=== PATIENT | female | born 1995 | race Caucasian/White ===

== ENCOUNTER 2017-06-22 13:23 | Emergency (ER) | payer BC ==
[2017-06-22 14:54] VITALS: BP 117/61
--- NOTE | 2017-06-22 15:01 | UC ---
Abdominal Pain Female HPI - History of Current Complaint Stated Complaint: VOMITING/DIARRHEA Time Seen by Provider: 06/22/17 14:53 Hx Obtained From: Patient Hx Last Menstrual Period: 05/11/17 ?: No Onset/Duration: Gradual Onset - 2 weeks ago LUQ abd pain, cramping pain., Worse Since - last night with nausea and vomiting. Timing: Intermittent Episodes Lasting: - 1 1/2 to 2 hours after BM with diarrhea. Severity Initially: Moderate Severity Currently: None Pain Intensity: 7 Location: Discrete At: LUQ Character: Cramping Aggravating Factor(s): Other: - bowel movements Alleviating Factor(s): Nothing Associated Signs and Symptoms: Positive: Diaphoresis, Dizzy, Nausea, Vomiting, Diarrhea. Negative: Blood in Stool, Decreased Appetite Allergies/Adverse Reactions: Allergies Allergy/AdvReac Type Severity Reaction Status Date / Time Amoxicillin Allergy Intermediate Diarrhea Verified 06/22/17 14:54 Penicillins [PCN] Allergy Intermediate Diarrhea Verified 06/22/17 14:54 Latex Allergy Mild Rash Verified 06/22/17 14:54 Home Medications: Home Medications Ibuprofen TAB* [Advil TAB*] 400 mg PO Q6H PRN 06/22/17 [History Confirmed ] PMH/Surg Hx/FS Hx/Imm Hx Previously Healthy: Yes Other History Of: Hepatitis C Negative For: HIV, Hepatitis B - Surgical History Surgical History: Yes Surgery Procedure, Year, and Place: APPY AGE 14 - Family History Known Family History: Positive: Cardiac Disease, Hypertension Negative: Diabetes, Renal Disease, Seizure Disorder - Social History Occupation: Employed Full-time Lives: With Family Alcohol Use: None Substance Use Type: None Smoking Status (MU): Never Smoked Tobacco Have You Smoked in the Last Year: No Review of Systems Constitutional: Chills, Fatigue Gastrointestinal: Abdominal Pain, Vomiting, Diarrhea Musculoskeletal: Myalgia Neurological: Headache All Other Systems Reviewed And Are Negative: Yes Physical Exam Triage Information Reviewed: Yes Appearance: Well-Appearing, No Pain Distress, Well-Nourished Vital Signs: Initial Vital Signs Temp 98.8 F 06/22/17 14:44 Pulse 76 06/22/17 14:44 Resp 18 06/22/17 14:44 BP 117/61 06/22/17 14:44 Pulse Ox 99 06/22/17 14:44 Vital Signs Reviewed: Yes Eyes: Positive: Conjunctiva Inflamed - mild bilaterally ENT: Positive: Pharynx normal - Mucus membranes moist., TMs normal Dental Exam: Normal Neck exam: Normal Respiratory Exam: Normal Cardiovascular: Positive: RRR, Murmur:Sys:Grade _?_/ - 2/6 only when lying down Abdomen Description: Negative: Nontender - Mild bilateral lower quadrant tenderness, No Organomegaly, CVA Tenderness (R), CVA Tenderness (L), Peritoneal Signs Bowel Sounds: Positive: Present Musculoskeletal Exam: Normal Neurological Exam: Normal Psychological Exam: Normal Skin Exam: Normal Abd Pain Female Course/Dx - Differential Dx/Diagnosis Differential Diagnosis: Appendicitis, Bowel Obstruction, Diverticulitis, Ectopic , Renal Colic Provider Diagnoses: Acute gastroenteritis. Abdominal pain Discharge - Discharge Plan Condition: Stable Disposition: HOME Prescriptions: Ondansetron ODT TAB* [Zofran 4 MG Odt TAB*] 4 mg PO Q6H PRN #10 tab.odt PRN Reason: Nausea/Vomiting Patient Education Materials: Gastroenteritis (ED), Ondansetron (By mouth), Abdominal Pain (ED) Forms: *Work Release Additional Instructions: Ok to use imodium/ generic loperamide if you don't have bloody diarrhea or shaking chills.
== END 2017-06-22 15:50 | disposition home or self-care (01) ==
LOC: UCCORT 13:23
DX: K52.9 Noninfective gastroenteritis and colitis, unspecified (principal); R10.12 Left upper quadrant pain; R42 Dizziness and giddiness; R61 Generalized hyperhidrosis; R51 Headache; R53.83 Other fatigue; M79.1 Myalgia; Z32.02 Encounter for pregnancy test, result negative; Z88.0 Allergy status to penicillin; Z91.040 Latex allergy status
CPT/HCPCS: 81003; 84702; 87086; 99212; G0463

== ENCOUNTER 2018-05-20 08:50 | Emergency (ER) | payer SELFPAY ==
[2018-05-20 09:06] VITALS: BP 123/92
--- NOTE | 2018-05-20 09:33 | RAD ---
HISTORY: INJURY TO RIGHT MIDDLE FINGER COMPARISONS: June 08, 2015 VIEWS: 3, Frontal, lateral, and oblique views of the third digit of the right hand FINDINGS: BONE DENSITY: Normal. BONES: There is a nondisplaced fracture of the tuft of the distal phalanx of the third digit. JOINTS: There is no arthropathy. ALIGNMENT: There is no dislocation. SOFT TISSUES: Unremarkable. OTHER FINDINGS: None. IMPRESSION: NONDISPLACED FRACTURE OF THE TUFT OF THE DISTAL PHALANX OF THE THIRD DIGIT
--- NOTE | 2018-05-20 10:16 | UC ---
Hand/Wrist HPI - HPI Summary HPI Summary: RIGHT MIDDLE FINGER PAIN X 1 DAY INJURY TO RIGHT MIDDLE FINGER ONE DAY AGO, PINCHED HER FINGER BETWEEN THE COUCH SHE WAS MOVING IT - History Of Current Complaint Chief Complaint: UCUpperExtremity Stated Complaint: RIGTH MIDDLE FINGER INJURY Time Seen by Provider: 05/20/18 09:11 Hx Obtained From: Patient Hx Last Menstrual Period: 04/20/18 ?: No Onset/Duration: Sudden Onset, Lasting Days - 1, Still Present Severity Initially: Moderate Severity Currently: Moderate Pain Intensity: 8 Pain Scale Used: 0-10 Numeric Character Of Pain: Throbbing Aggravating Factor(s): Movement, Lifting, Flexion, Extension Alleviating Factor(s): Rest, Ice Associated Signs And Symptoms: Positive: Swelling, Redness, Weakness - Allergies/Home Medications Allergies/Adverse Reactions: Allergies Allergy/AdvReac Type Severity Reaction Status Date / Time amoxicillin Allergy Diarrhea Verified 05/20/18 09:06 latex Allergy Rash Verified 05/20/18 09:06 Penicillins Allergy Diarrhea Verified 05/20/18 09:06 PMH/Surg Hx/FS Hx/Imm Hx Previously Healthy: Yes Other History Of: Hepatitis C Negative For: HIV, Hepatitis B - Surgical History Surgical History: Yes Surgery Procedure, Year, and Place: APPY AGE 14 - Family History Known Family History: Positive: Cardiac Disease, Hypertension Negative: Diabetes, Renal Disease, Seizure Disorder - Social History Alcohol Use: Occasionally Substance Use Type: None Smoking Status (MU): Never Smoked Tobacco Have You Smoked in the Last Year: No Review of Systems Constitutional: Negative Skin: Negative Eyes: Negative ENT: Negative Is Patient Immunocompromised?: No All Other Systems Reviewed And Are Negative: Yes Physical Exam Triage Information Reviewed: Yes Appearance: Well-Appearing, No Pain Distress, Well-Nourished Vital Signs: Initial Vital Signs Temp 97.6 F 05/20/18 09:02 Pulse 77 05/20/18 09:02 Resp 14 05/20/18 09:02 BP 123/92 05/20/18 09:02 Pulse Ox 100 05/20/18 09:02 Eye Exam: Normal Eyes: Positive: Conjunctiva Clear ENT Exam: Normal ENT: Positive: Normal ENT inspection, Hearing grossly normal, Pharynx normal Neck: Positive: Supple, Nontender, No Lymphadenopathy Respiratory: Positive: Chest non-tender, Lungs clear, Normal breath sounds Cardiovascular: Positive: RRR, No Murmur, Pulses Normal Musculoskeletal: Positive: Other: - RIGHT MIDDLE FINGER ; + SWELLING DISTAL PHALANGS, TENDER TO TOUCH , PAIN WITH FINGER FLEXION AND EXTENSION Diagnostics - Laboratory Diagnostic Studies Completed/Ordered: XRAY RIGHT MIDDLE FINGER : IMPRESSION: NONDISPLACED FRACTURE OF THE TUFT OF THE DISTAL PHALANX OF THE THIRD DIGIT Hand/Wrist Course/Dx - Differential Dx/Diagnosis Provider Diagnoses: TUFT FRACTUE RIGHT MIDDLE FINGER Discharge - Sign-Out/Discharge Documenting (check all that apply): Patient Departure - Discharge Plan Condition: Stable Disposition: HOME Patient Education Materials: Finger Fracture (ED) Forms: *Work Release Referrals: Nash Alonso MD [Primary Care Provider] - 7 Days - Billing Disposition and Condition Condition: STABLE Disposition: Home
== END 2018-05-20 09:47 | disposition home or self-care (01) ==
LOC: UCCORT 08:50
DX: S62.662A Nondisplaced fracture of distal phalanx of right middle finger, initial encounter for closed fracture (principal); W23.0XXA Caught, crushed, jammed, or pinched between moving objects, initial encounter; Y93.89 Activity, other specified; Y92.008 Other place in unspecified non-institutional (private) residence as the place of occurrence of the external cause; Z88.0 Allergy status to penicillin
CPT/HCPCS: 73140; 99212; G0463

== ENCOUNTER 2019-04-26 13:22 | Emergency (ER) | payer SELFPAY ==
[2019-04-26 14:31] VITALS: BP 128/66
--- NOTE | 2019-04-26 14:58 | ED ---
Throat Pain/Nasal Congestion - HPI Summary HPI Summary: 24 yr old female with left ear pain. Onset of pain several days ago, and associated with some drainage from the left ear canal. She has had increasing pain anterior to the left ear in the pre auricular area. No facial swelling. No facial weakness, no pain in mastoid area. No fever or chills. The patient has moderate pain. No URI symptoms. - History of Current Complaint Chief Complaint: UCEar Time Seen by Provider: 04/26/19 14:46 - Allergies/Home Medications Allergies/Adverse Reactions: Allergies Allergy/AdvReac Type Severity Reaction Status Date / Time amoxicillin Allergy Diarrhea Verified 04/26/19 14:31 latex Allergy Rash Verified 04/26/19 14:31 Penicillins Allergy Diarrhea Verified 04/26/19 14:31 PMH/Surg Hx/FS Hx/Imm Hx Endocrine/Hematology History: Denies: Hx Diabetes, Hx Thyroid Disease Cardiovascular History: Denies: Hx Congestive Heart Failure, Hx Deep Vein Thrombosis, Hx Hypertension , Hx Myocardial Infarction, Hx Pacemaker/ICD Respiratory History: Denies: Hx Asthma, Hx Chronic Obstructive Pulmonary Disease (COPD), Hx Lung Cancer, Hx Pneumonia, Hx Pulmonary Embolism GI History: Denies: Hx Gall Bladder Disease, Hx Gastrointestinal Bleed, Hx Ulcer, Hx Urosepsis History: Denies: Hx Kidney Stones, Hx Renal Disease Sensory History: Denies: Hx Hearing Aid Neurological History: Denies: Hx Dementia, Hx Migraine, Hx Seizures, Hx Transient Ischemic Attacks (TIA) Psychiatric History: Denies: Hx Anxiety, Hx Depression, Hx Panic Disorder, Hx Schizophrenia, Hx Bipolar Disorder - Surgical History Surgery Procedure, Year, and Place: APPY AGE 14 Infectious Disease History: No Infectious Disease History: Denies: Traveled Outside the [place] in Last 30 Days - Family History Known Family History: Positive: Cardiac Disease, Hypertension Negative: Diabetes, Renal Disease, Seizure Disorder - Social History Alcohol Use: Occasionally Substance Use Type: Reports: None Smoking Status (MU): Never Smoked Tobacco Have You Smoked in the Last Year: No Review of Systems Constitutional: Negative Positive: Other - left ear pain All Other Systems Reviewed And Are Negative: Yes Physical Exam Triage Information Reviewed: Yes Vital Signs On Initial Exam: Initial Vitals Temp Pulse Resp BP Pulse Ox 98.1 F 87 16 128/66 100 04/26/19 14:28 04/26/19 14:28 04/26/19 14:28 04/26/19 14:28 04/26/19 14:28 Vital Signs Reviewed: Yes Appearance: Positive: Well-Appearing, No Pain Distress Skin: Positive: Warm, Skin Color Reflects Adequate Perfusion Head/Face: Positive: Normal Head/Face Inspection Eyes: Positive: EOMI, TACHO ENT: Positive: Pharynx normal, TMs normal, Other - left external canal with exudate and erythema.. Negative: Nasal congestion, Nasal drainage Neck: Positive: Nontender Respiratory/Lung Sounds: Positive: Clear to Auscultation, Breath Sounds Present Cardiovascular: Positive: RRR. Negative: Murmur Abdomen Description: Negative: Distended Musculoskeletal: Positive: Strength/ROM Intact Neurological: Positive: Sensory/Motor Intact, Alert, Oriented to Person Place, Time, CN Intact II-III, Normal Gait, Speech Normal Psychiatric: Positive: Normal Diagnostics - Vital Signs Vital Signs Temp Pulse Resp BP Pulse Ox 04/26/19 14:28 98.1 F 87 16 128/66 100 - Laboratory Lab Statement: Any lab studies that have been ordered have been reviewed, and results considered in the medical decision making process. EENT Course/Dx - Course Course Of Treatment: 24 yr old with left otitis externa. Rx with Cortisporin otic suspension. FU wtih PMD. - Diagnoses Provider Diagnoses: Otitis media, left Discharge - Sign-Out/Discharge Documenting (check all that apply): Patient Departure All imaging exams completed and their final reports reviewed: No Studies - Discharge Plan Condition: Good Disposition: HOME Prescriptions: Neomyc/Polym/HC 1% OTIC SUSP* [Cortisporin Otic Susp 1%*] 4 drop LEFT EAR QID # 1 btl Patient Education Materials: Otitis Externa (ED) Referrals: Nash Alonso MD [Primary Care Provider] - 3 Days - Billing Disposition and Condition Condition: GOOD Disposition: Home
== END 2019-04-26 14:58 | disposition home or self-care (01) ==
LOC: UCCORT 13:22
DX: H66.92 Otitis media, unspecified, left ear (principal)
CPT/HCPCS: 99212; G0463

== ENCOUNTER 2019-05-11 16:16 | Emergency (ER) | payer SELFPAY ==
[2019-05-11 16:55] VITALS: BP 129/89
--- NOTE | 2019-05-11 16:59 | UC ---
Ear Complaint HPI - HPI Summary HPI Summary: 24 yo female with right ear pain x 3 days recently rxed with cortisporin otic for left OE no fever hurts to chew - History of Current Complaint Chief Complaint: UCEar Stated Complaint: EAR PAIN Time Seen by Provider: 05/11/19 16:57 Hx Obtained From: Patient Hx Last Menstrual Period: [id number] Onset/Duration: Gradual Onset, Lasting Days Severity Initially: Mild Severity Currently: Severe Pain Intensity: 8 Pain Scale Used: 0-10 Numeric Associated Signs/Symptoms: Positive: Hearing Loss - Allergies/Home Medications Allergies/Adverse Reactions: Allergies Allergy/AdvReac Type Severity Reaction Status Date / Time amoxicillin Allergy Diarrhea Verified 05/11/19 16:55 latex Allergy Rash Verified 05/11/19 16:55 Penicillins Allergy Diarrhea Verified 05/11/19 16:55 Home Medications: Home Medications Acetaminophen TAB* [Tylenol TAB*] 650 mg PO Q4H PRN 05/11/19 [History Confirmed 05/11/19] Neomyc/Polym/HC 1% OTIC SUSP* [Cortisporin Otic Susp 1%*] 4 drop BOTH EARS QID 05/11/19 [History Confirmed 05/11/19] PMH/Surg Hx/FS Hx/Imm Hx Previously Healthy: Yes Other History Of: Hepatitis C Negative For: HIV, Hepatitis B - Surgical History Surgical History: Yes Surgery Procedure, Year, and Place: APPY AGE 14 - Family History Known Family History: Positive: Cardiac Disease, Hypertension Negative: Diabetes, Renal Disease, Seizure Disorder - Social History Alcohol Use: Weekly Substance Use Type: None Smoking Status (MU): Never Smoked Tobacco Have You Smoked in the Last Year: No Review of Systems All Other Systems Reviewed And Are Negative: Yes Constitutional: Positive: Negative Skin: Positive: Negative Eyes: Positive: Negative ENT: Positive: Ear Ache Respiratory: Positive: Negative Cardiovascular: Positive: Negative Gastrointestinal: Positive: Negative Genitourinary: Positive: Negative Motor: Positive: Negative Neurovascular: Positive: Negative Musculoskeletal: Positive: Negative Neurological: Positive: Negative Psychological: Positive: Negative Physical Exam Triage Information Reviewed: Yes Appearance: Well-Appearing, No Pain Distress, Well-Nourished Vital Signs: Initial Vital Signs Temp 98.4 F 05/11/19 16:51 Pulse 75 05/11/19 16:51 Resp 16 05/11/19 16:51 BP 129/89 05/11/19 16:51 Pulse Ox 100 05/11/19 16:51 Vital Signs Reviewed: Yes Eyes: Positive: Conjunctiva Clear ENT: Positive: Pharynx normal, TMs normal, Uvula midline, Other - right tragal tenderness, swollen right EAC. Negative: Hearing grossly normal, Pharyngeal erythema, Nasal congestion, Nasal drainage, TM bulging, TM dull, TM red, Tonsillar swelling, Tonsillar exudate, Trismus, Hoarse voice, Dental tenderness , Sinus tenderness Dental Exam: Normal Neck: Positive: Supple, Nontender, No Lymphadenopathy Respiratory: Positive: Lungs clear, Normal breath sounds, No respiratory distress Cardiovascular: Positive: RRR, No Murmur Musculoskeletal: Positive: ROM Intact, No Edema Neurological: Positive: Alert Psychological Exam: Normal Skin Exam: Normal Ear Complaint Course/Dx - Differential Dx/Diagnosis Provider Diagnosis: Right otitis externa Discharge - Sign-Out/Discharge Documenting (check all that apply): Patient Departure All imaging exams completed and their final reports reviewed: No Studies - Discharge Plan Condition: Stable Disposition: HOME Prescriptions: Cephalexin CAP* [Keflex CAP*] 500 mg PO QID #28 cap Patient Education Materials: Otitis Externa (ED) Forms: *Work Release Referrals: Nash Alonso MD [Primary Care Provider] - If Needed Additional Instructions: recheck in about 4 days if not improved continue to use ear drops as directed - Billing Disposition and Condition Condition: STABLE Disposition: Home
== END 2019-05-11 17:15 | disposition home or self-care (01) ==
LOC: UCEAST 16:16
DX: H60.91 Unspecified otitis externa, right ear (principal); Z88.0 Allergy status to penicillin; Z91.040 Latex allergy status
CPT/HCPCS: 99212; G0463

== ENCOUNTER 2019-09-25 09:21 | Emergency (ER) | payer MEDICAID ==
[2019-09-25 09:40] VITALS: BP 128/78
--- NOTE | 2019-09-25 10:04 | UC ---
Throat Pain/Nasal Sinan HPI - HPI Summary HPI Summary: Her throat has been sore for a couple of days but is much worse today. Her ears hurt a little bit also. - History of Current Complaint Chief Complaint: UCRespiratory Stated Complaint: THROAT PAIN Time Seen by Provider: 09/25/19 09:59 Hx Obtained From: Patient Hx Last Menstrual Period: [id number] Onset/Duration: Gradual Onset Severity: Moderate Pain Intensity: 7 Associated Signs & Symptoms: Positive: Negative - Allergies/Home Medications Allergies/Adverse Reactions: Allergies Allergy/AdvReac Type Severity Reaction Status Date / Time amoxicillin Allergy Diarrhea Verified 09/25/19 09:40 latex Allergy Rash Verified 09/25/19 09:40 Penicillins Allergy Diarrhea Verified 09/25/19 09:40 PMH/Surg Hx/FS Hx/Imm Hx Previously Healthy: Yes Other History Of: Hepatitis C Negative For: HIV, Hepatitis B - Surgical History Surgical History: Yes Surgery Procedure, Year, and Place: APPY AGE 14 - Family History Known Family History: Positive: Cardiac Disease, Hypertension Negative: Diabetes, Renal Disease, Seizure Disorder - Social History Alcohol Use: Occasionally Substance Use Type: None Smoking Status (MU): Never Smoked Tobacco Have You Smoked in the Last Year: No Review of Systems All Other Systems Reviewed And Are Negative: Yes Constitutional: Positive: Negative Skin: Positive: Negative ENT: Positive: Sore Throat, Ear Ache Respiratory: Positive: Negative Physical Exam - Summary Physical Exam Summary: She is nontoxic in appearance with stable vitals Triage Information Reviewed: Yes Appearance: Well-Appearing Vital Signs: Initial Vital Signs Temp 98.8 F 09/25/19 09:37 Pulse 98 09/25/19 09:37 Resp 18 09/25/19 09:37 BP 128/78 09/25/19 09:37 Pulse Ox 98 09/25/19 09:37 Vital Signs Reviewed: Yes Eyes: Positive: Conjunctiva Clear ENT: Positive: Pharyngeal erythema, TMs normal Neck: Positive: Supple, Nontender, No Lymphadenopathy Respiratory: Positive: Lungs clear Throat Pain/Nasal Course/Dx - Course Course Of Treatment: Her strep test was positive here. She is allergic to penicillins and I will treat her with clindamycin. - Differential Dx/Diagnosis Provider Diagnosis: Strep pharyngitis Discharge ED - Sign-Out/Discharge Documenting (check all that apply): Patient Departure All imaging exams completed and their final reports reviewed: No Studies - Discharge Plan Condition: Stable Disposition: HOME Patient Education Materials: Strep Throat (ED) Referrals: Nash Alonso MD [Primary Care Provider] - - Billing Disposition and Condition Condition: STABLE Disposition: Home
== END 2019-09-25 10:20 | disposition home or self-care (01) ==
LOC: UCEAST 09:21
DX: J02.0 Streptococcal pharyngitis (principal); H92.03 Otalgia, bilateral; Z88.0 Allergy status to penicillin; Z91.040 Latex allergy status
CPT/HCPCS: 87651; 99212; G0463

== ENCOUNTER 2019-10-09 16:12 | Emergency (ER) | payer MEDICAID, OTHER ==
[2019-10-09 16:33] VITALS: BP 118/79
--- NOTE | 2019-10-09 17:17 | UC ---
Truncal Trauma HPI - HPI Summary HPI Summary: 24-year-old female presents with complaints of left lower anterior chest wall pain for the past 2 weeks. Patient reports that she fell and struck her chest wall in the same area back in May. Had some pain and discomfort for a while after that but pain eventually resolved. 2 weeks ago started developing some mild discomfort in the same area especially with palpation or deep breath. States over the last 4 days it has progressively worsened. She has not taken any [id number] analgesics. Denies any fever, chills, rash, palpitations, shortness of breath, cough, abdominal pain, nausea, or vomiting. - History Of Current Complaint Chief Complaint: UCChestPain Stated Complaint: RIB INJURY Time Seen by Provider: 10/09/19 17:11 Hx Obtained From: Patient Hx Last Menstrual Period: 2 months ago- states on continuous control Pain Intensity: 7 - Allergies/Home Medications Allergies/Adverse Reactions: Allergies Allergy/AdvReac Type Severity Reaction Status Date / Time amoxicillin Allergy Diarrhea Verified 10/09/19 16:30 latex Allergy Rash Verified 10/09/19 16:30 Penicillins Allergy Diarrhea Verified 10/09/19 16:30 Home Medications: Home Medications Bcp 10/09/19 [History] PMH/Surg Hx/FS Hx/Imm Hx Previously Healthy: Yes - Denies significant PMH Other History Of: Hepatitis C Negative For: HIV, Hepatitis B - Surgical History Surgical History: Yes Surgery Procedure, Year, and Place: APPY AGE 14 - Family History Known Family History: Positive: Cardiac Disease, Hypertension Negative: Diabetes, Renal Disease, Seizure Disorder - Social History Lives: With Family Alcohol Use: Occasionally Substance Use Type: None Smoking Status (MU): Never Smoked Tobacco Have You Smoked in the Last Year: No Review of Systems All Other Systems Reviewed And Are Negative: Yes Constitutional: Negative: Fever, Chills Skin: Negative: Rash, Bruising Respiratory: Negative: Shortness Of Breath, Cough Cardiovascular: Negative: Palpitations Gastrointestinal: Negative: Abdominal Pain, Vomiting, Diarrhea, Nausea Genitourinary: Positive: Negative Musculoskeletal: Positive: Other: - See HPI Neurological: Positive: Negative Is Patient Immunocompromised?: No Physical Exam - Summary Physical Exam Summary: GENERAL APPEARANCE: Well developed, well nourished, alert and cooperative, and appears to be in no acute distress. CARDIAC: Normal S1 and S2. No S3, S4 or murmurs. Rhythm is regular. There is no peripheral edema, cyanosis or pallor. Extremities are warm and well perfused. Capillary refill is less than 2 seconds. Peripheral pulses intact. LUNGS: Mild tenderness to the left lower anterior chest wall without erythema, ecchymosis, lesions, or crepitus. Clear to auscultation without rales, rhonchi, wheezing or diminished breath sounds. ABDOMEN: Positive bowel sounds. Soft, nondistended, nontender. No guarding or rebound. No masses or hepatosplenomegally. MUSKULOSKELETAL: ROM intact to all extremities. No joint erythema or tenderness. Normal muscular development. Normal gait. SKIN: Skin normal color, texture and turgor with no lesions or eruptions. Triage Information Reviewed: Yes Vital Signs: Initial Vital Signs Temp 98.3 F 10/09/19 16:31 Pulse 81 10/09/19 16:31 Resp 18 10/09/19 16:31 BP 118/79 10/09/19 16:31 Pulse Ox 99 10/09/19 16:31 Vital Signs Reviewed: Yes Diagnostics - Radiology No standard instances Radiology Interpretation Completed By: Radiologist Summary of Radiographic Findings: Order Information: RIBS LT UNI W/PA CH MIN 3 VWS. INDICATION: Left-sided chest wall pain. COMPARISON: None. TECHNIQUE: 5 views of the left ribs were obtained. FINDINGS: No fracture or significant focal osseous abnormality is seen. No pneumothorax is apparent. Limited views demonstrate grossly clear lungs. IMPRESSION: No radiographically apparent displaced rib fracture or pneumothorax. Truncal Trauma Course/Dx - Course Course Of Treatment: 24-year-old female presents with complaints of left lower anterior chest wall pain for the past 2 weeks. Patient reports that she fell and struck her chest wall in the same area back in May. Had some pain and discomfort for a while after that but pain eventually resolved. 2 weeks ago started developing some mild discomfort in the same area especially with palpation or deep breath. States over the last 4 days it has progressively worsened. She has not taken any [id number] analgesics. Denies any fever, chills, rash, palpitations, shortness of breath, cough, abdominal pain, nausea, or vomiting. Afebrile. Vital signs stable. Patient had mild tenderness to the left lower anterior chest wall without erythema, ecchymosis, lesions, or crepitus, clear to auscultation without rales, rhonchi, wheezing or diminished breath sounds, and otherwise unremarkable exam. Left ribs and chest x-ray were obtained and showed no acute cardiopulmonary pathology or rib fracture. Reviewed results with the patient. Recommending conservative treatment for chest wall pain including [id number] analgesics and ice and heat therapy. She is to follow-up with her primary care provider in 3-5 days if symptoms do not improve. Anticipatory guidance and warning symptoms reviewed with the patient. Verbalized understanding of Azo plan of care. - Differential Dx/Diagnosis Differential Diagnosis/HQI/PQRI: Chest Wall Contusion, Pneumothorax, Rib Fracture Provider Diagnosis: Chest wall pain Discharge ED - Sign-Out/Discharge Documenting (check all that apply): Patient Departure All imaging exams completed and their final reports reviewed: Yes - Discharge Plan Condition: Stable Disposition: HOME Patient Education Materials: Chest Wall Pain (ED) Referrals: Nash Alonso MD [Primary Care Provider] - 3 Days (If no improvement.) Additional Instructions: The chest and rib x-ray's performed in the clinic today were normal. Take acetaminophen (Tylenol) or ibuprofen (Advil, Motrin) according to directions as needed for pain. Try applying ice, heat, or alternating ice and heat for 15-20 minutes every few hours throughout the day to help with the pain. Follow-up with your primary care provider in 3-5 days if symptoms persist. Seek immediate medical attention in the emergency room if you develop a fever greater than 100.5 F, have worsening chest pain, difficulty breathing, severe abdominal pain, persistent vomiting, or any worsening of symptoms. - Billing Disposition and Condition Condition: STABLE Disposition: Home
== END 2019-10-09 18:21 | disposition home or self-care (01) ==
LOC: UCEAST 16:12
DX: R07.89 Other chest pain (principal); Z88.0 Allergy status to penicillin; Z91.09 Other allergy status, other than to drugs and biological substances
CPT/HCPCS: 99211; G0463

== ENCOUNTER 2019-11-24 10:57 | Emergency (ER) | payer OTHER ==
--- OUTSIDE RECORDS SUMMARY | 2019-11-24 11:05 | XMS REPORT | Summary of Care ---
:1995 Author Organization [facility] Address [address] [facility] [place] [address] Care Team Providers Name Role Phone Nash Alonso Primary Care Provider Reason for Referral MRI/CAT/PET Scan (Routine) Status Reason Specialty Diagnoses / Referred By Referred To Procedures Contact Contact Pending Review Diagnoses Other microscopic hematuria Stephen, Procedures CT ABDOMEN PELVIS UROGRAPHY TRIPHASIC MD Yola [address] [place] [address] Reason for Visit Reason Comments Urinary Tract Infection Recurrent New pt Encounter Details Date Type Department Care Team Description 11/19/2019 Office Visit [facility] Stephen, Recurrent UTI (Primary Dx); [address] MD Yola [place] [address] [address] [phone] [place] [address] [phone] Allergies Active Allergy Reactions Severity Noted Date Comments Amoxicillin GI Reaction 01/04/2017 Penicillins GI Reaction 01/04/2017 documented as of this encounter (statuses as of 11/19/2019) Medications Medication Sig Dispensed Refills Start Date End Date Status ibuprofen (MOTRIN) Take 200 mg by 0 Active 200 MG Oral Tab mouth EVERY SIX HOURS NEEDED for Pain. metroNIDAZOLE Take 1 Tab by 28 Tab 0 11/13/2019 Active (FLAGYL) 500 MG Oral mouth THREE TIMES Tab DAILY. fluconazole Take 1 Tab by 1 Tab 0 11/13/2019 Active (DIFLUCAN) 150 MG mouth DAILY. Oral Tab oxybutynin (DITROPAN) Take 0.5 Tabs by 90 Tab 0 11/19/2019 Active 5 MG Oral Tab mouth TWICE DAILY. ciprofloxacin (CIPRO) Take 1 Tab by 1 Tab 0 11/19/2019 11/20/2019 Active 500 MG Oral Tab mouth DIRECTED for 1 day. Take 1 hour prior to procedure documented as of this encounter (statuses as of 11/19/2019) Active Problems Problem Noted Date Acne 07/30/2008 Recurring Sprains of Ankle 07/30/2008 Overweight (BMI 25.0-29.9) 07/30/2008 Overview: 08/08/2007, BMI: 26.55 Heart Murmur as Child 07/30/2008 documented as of this encounter (statuses as of 11/19/2019) Resolved Problems Problem Noted Date Resolved Date Well child check 08/08/2007 09/05/2011 documented as of this encounter (statuses as of 11/19/2019) Immunizations Name Administration Dates Next Due Adacel TdaP 08/08/2007 DTAP Vaccine 03/18/2001, 07/19/1997, 1996, 1996, 1996 HIB 07/19/1997, 1996, 1996, 1996 Hepatitis B Vaccine 1996, 1996, 1996 Human Papillomavirus 03/15/2008, 10/27/2007, 08/08/2007 Influenza (IM) Preservative Free 08/31/2010 MMR VACCINE 03/18/2001, 03/29/1997 Polio - Inactivated Vaccine 03/18/2001, 07/19/1997, 1996, 1996 Tuberculin Skin Test 04/24/2016 Varicella Vaccine Live 03/29/1997 documented as of this encounter Social History Tobacco Use Types Packs/Day Years Used Date Current Every Day Smoker Smokeless Tobacco: Never Used Alcohol Use Drinks/Week oz/Week Comments No Sex Assigned at Date Recorded Not on file Job Start Date Occupation Industry Not on file Not on file Not on file Travel History Travel Start Travel End No recent travel history available. documented as of this encounter Last Filed Vital Signs Not on filedocumented in this encounter Progress Notes Yola Mitchell MD - 11/19/2019 3:45 PM EST PATIENT: Beth Clemens : 1995 DATE OF SERVICE: 11/19/2019 REFERRING PRACTITIONER: Self-Referred PRIMARY CARE PROVIDER: Nash Alonso CHIEF COMPLAINT: Chief Complaint Patient presents with Urinary Tract Infection Recurrent New pt Subjective HISTORY OF PRESENT ILLNESS: Beth Clemens is a 24-y.o. female presenting with a recent history of UTI She was treated with antibiotics by her PCP Denies any recurrent UTI symptoms however she has suprapubic discomfort during micturition She also describes occasional urgency and nocturia Denies any frequency as such She was tested for STI negative She was treated for Gardnerella and candidiasis by her PCP recently No PV or urethral discharge No hematuria Occasional smoker Post void residual zero cc Urinalysis showed moderate blood No Family history of urological malignancies or renal problems Past Medical History: Diagnosis Date Acne 07/30/2008 Heart Murmur as Child 07/30/2008 Overweight (BMI 25.0-29.9) 07/30/2008 08/08/2007, BMI: 26.55 Recurring Sprains of Ankle 07/30/2008 Past Surgical History: Procedure Laterality Date APPENDECTOMY Family History Problem Relation Age of Onset Asthma Unknown Current Outpatient Medications Medication Sig fluconazole (DIFLUCAN) 150 MG Oral Tab Take 1 Tab by mouth DAILY. ibuprofen (MOTRIN) 200 MG Oral Tab Take 200 mg by mouth EVERY SIX HOURS NEEDED for Pain. metroNIDAZOLE (FLAGYL) 500 MG Oral Tab Take 1 Tab by mouth THREE TIMES DAILY. No current facility-administered medications for this visit. Allergies Allergen Reactions Amoxicillin GI Reaction Penicillins GI Reaction Social History Socioeconomic History Marital status: Single Spouse name: Not on file Number of children: Not on file Years of education: Not on file Highest education level: Not on file Occupational History Not on file Social Needs Financial resource strain: Not on file Food insecurity Worry: Not on file Inability: Not on file Transportation needs Medical: Not on file Non-medical: Not on file Tobacco Use Smoking status: Current Every Day Smoker Smokeless tobacco: Never Used Substance and Sexual Activity Alcohol use: No Drug use: No Sexual activity: Yes Partners: Male control/protection: Implant Lifestyle Physical activity Days per week: Not on file Minutes per session: Not on file Stress: Not on file Relationships Social connections Talks on phone: Not on file Gets together: Not on file Attends adventist service: Not on file Active member of club or organization: Not on file Attends meetings of clubs or organizations: Not on file Relationship status: Not on file Intimate partner violence Fear of current or ex partner: Not on file Emotionally abused: Not on file Physically abused: Not on file Forced sexual activity: Not on file Other Topics Concern Back Care Not Asked Bike Helmet Not Asked Blood Transfusions Not Asked Caffeine Concern Not Asked Exercise Not Asked Hobby Hazards Not Asked International Travel Not Asked Service Not Asked Occupational Exposure Not Asked Seat Belt Not Asked Self-Exams Not Asked Sleep Concern Not Asked Special Diet Not Asked Stress Concern Not Asked Weight Concern Not Asked Social History Narrative Not on file REVIEW OF SYSTEMS: All remaining review of systems was negative except for as noted in the history of present illness/subjective. Objective PHYSICAL EXAMINATION: VITALS: There were no vitals taken for this visit. There is no height or weight on file to calculate BMI. GENERAL: healthy, well nourished, in no distress. NECK: no mass, no adenopathy, no thyromegaly. LUNGS: good air entry bilaterally, no crackles or wheezes. HEART: regular rhythm, no murmurs, no gallops, no rubs. ABDOMEN: no palpable masses, organomegaly or hernias, no peritoneal, flank or bladder tenderness. GENITOURINARY: defer exam. RECTAL: exam deferred. LYMPHATIC: no inguinal adenopathy. SKIN: normal, no rashes or abnormalities noted. NEUROLOGICAL: alert and oriented x3. LABORATORY DATA: Urine today in the office is Results for BETH CLEMENS ( ) as of 11/19 12:02 Ref. Range 11/19/2019 11:55 Urine Specific Eldridge Latest Ref Range: 1.005 - 1.030 1.015 Urine Ph Latest Ref Range: 5.0 - 8.0 8.0 Urine Bilirubin (POCT) Latest Ref Range: Negative Negative Urine Blood (POCT) Latest Ref Range: Negative Moderate (A) Urine Glucose (POCT) Latest Ref Range: Negative mg/dl Negative Urine Ketones (POCT) Latest Ref Range: Negative Negative Urine Leukocytes (POCT) Latest Ref Range: Negative Cells/uL Large (A) URINE NITRITES (POCT) Latest Ref Range: Negative Negative Urine Protein (POCT) Latest Ref Range: Negative mg/dl 30 (A) Urine Urobilinogen (POCT) Latest Ref Range: 0.2 - 1.0 mg/dl 0.2 DIAGNOSTIC DATA: Diagnostic tests reviewed today: labs IMPRESSION: OAB. UTI. Microscopic hematuria ICD-9-CM ICD-10-CM 1. Recurrent UTI 599.0 N39.0 POST VOID RESIDUAL MEASUREMENT URINE DIP CLINITEK (AMB POCT) During this visit, I reviewed the relevant imaging, pathology reports, laboratory reports, and previous clinical notes. Additional counseling and preparation time (which represents > 50 % of total visit time) was necessary for data gathering, reviewing studies and discussing options, in excess of interviewing the patient and/or family members. This time was used to discuss the the complex nature of the problem, various treatment options available and the expected outcomes of each to the patient/family's satisfaction. It is possible she has an element of OAB and I recommended her a trial of Ditropan. She would also warrant investigation for her microscopic hematuria and have outlined the reason behind this. Also discussed UTI prevention strategies PLAN: CTU/ Cytology/ Cystoscopy Ditropan 2.5 mg BID - dose can be escalated depending on reponse Probiotics Urine culture Review at cystoscopy and if no further symptoms will be discharged Author: Yola Mitchell MD 11/19/2019 11:58 documented in this encounter Plan of Treatment Date Type Specialty Care Team Description 12/03/2019 Ancillary Procedure Radiology 12/14/2019 Office Visit Urology Yola Mitchell [place] [address] [phone] Name Type Priority Associated Diagnoses Date/Time BASIC METABOLIC PANEL Lab Routine Other microscopic 11/19/2019 12:25 PM EST hematuria CBC NO DIFFERENTIAL Lab Routine Other microscopic 11/19/2019 12:25 PM EST hematuria Name Type Priority Associated Diagnoses Order Schedule CT ABDOMEN PELVIS Imaging Routine Other microscopic Expected: 11/19/2019, UROGRAPHY TRIPHASIC hematuria Expires: 11/18/2020 NON-GYNECOLOGIC CYTOLOGY Lab Routine Other microscopic Ordered: 11/19/2019 hematuria BASIC METABOLIC PANEL Lab Routine Other microscopic Expected: 11/19/2019 hematuria (Approximate), Expires: 11/19/2020 CBC NO DIFFERENTIAL Lab Routine Other microscopic Expected: 11/19/2019 hematuria (Approximate), Expires: 11/19/2020 URINE CULTURE (C&S) Lab Routine Recurrent UTI 1 Occurrences starting Other microscopic 11/19/2019 until hematuria 05/17/2020 Health Maintenance Due Date Last Done Comments PNEUMOCOCCAL 0-64 YRS (1 of 2002 1 - PPSV23) DTaP/Tdap/Td Vaccines (6 - 2007 03/18/2001, 07/19/1997, Tdap) 1996, Additional history exists DEPRESSION SCREENING 2008 PAP SMEAR 2017 INFLUENZA VACCINE (#1) 2019 08/31/2010 CHLAMYDIA SCREENING 11/12/2020 11/12/2019 HPV IMMUNIZATION SERIES Completed 03/15/2008, 10/27/2007, 08/08/2007 HEPATITIS A IMMUNIZATION Aged Out No longer eligible SERIES based on patient's age to complete this topic MENINGOCOCCAL VACCINE IMM Aged Out No longer eligible based on patient's age to complete this topic documented as of this encounter Goals Goal Patient Goal Associated Recent Patient-Stated? Author Type Problems Progress Depression Depression No rocio Desai (PHQ-9) RITIKA Bell total score < 5 Note: This is an individualized treatment (depression) goal for Beth Clemens: Displayed above is your goal for a depression screening (PHQ-9) score that would indicate good control of your depression. Keep a regular sleep schedule Lifestyle No Arabella Desai FNP Note: This is an individualized lifestyle goal for Beth Clemens: Please maintain a regular sleep schedule. This may help with some symptoms of depression. Take all prescribed medications as Self-management No Arabella Desai FNP directed Note: This is an individualized self-management goal for Beth Clemens: Please take all prescribed medications as directed. 1. Do not skip doses. If you cannot afford your medications, talk with your doctor. 2. Use a pill reminder system such as a pill box if needed. Your pharmacist can help you with this. 3. Contact your Pharmacy 5 days before your medication runs out. If you cannot take your medications for any reasons, talk with your doctor. 4. Please bring all of your medication bottles and inhalers (or a list of all your medications/inhalers) with you to every visit. Potential barriers to meeting all of your care plan goals will continue to be addressed on an ongoing basis. documented as of this encounter Procedures Procedure Name Priority Date/Time Associated Comments Diagnosis URINE DIP CLINITEK Routine 11/19/2019 11:55 Recurrent UTI Results for this (AMB POCT) AM EST procedure are in the results section. POST VOID RESIDUAL Routine 11/19/2019 Recurrent UTI Results for this MEASUREMENT procedure are in the results section. documented in this encounter Results URINE DIP CLINITEK (AMB POCT) (11/19/2019 11:55 AM EST) URINE GLUCOSE (POCT) Negative Negative mg/dl [facility] POCT URINE BILIRUBIN Negative Negative [facility] (POCT) POCT Urine Ketones (POCT) Negative Negative [facility] POCT URINE SPECIFIC 1.015 1.005 - 1.030 [facility] GRAVITY (POCT) POCT URINE BLOOD (POCT) Moderate (A) Negative [facility] POCT URINE PH (POCT) 8.0 5.0 - 8.0 [facility] POCT URINE PROTEIN (POCT) 30 (A) Negative mg/dl [facility] POCT URINE UROBILINOGEN 0.2 0.2 - 1.0 mg/dl [facility] (POCT) POCT URINE NITRITES Negative Negative [facility] (POCT) POCT URINE LEUKOCYTES Large (A) Negative [facility] (POCT) Cells/uL POCT Specimen Urine - Urine specimen (specimen) Performing Organization Address [facility] Phone Number [facility] [address] [place] [address] POST VOID RESIDUAL MEASUREMENT (11/19/2019) POST VOID RESIDUAL [address] [facility] POCT LONGITUDINAL AXIS [address] [facility] POCT HORIZONTAL AXIS [address] [facility] POCT Performing Organization Address [facility] Centercooh Phone Number [facility] [address] [place] [address] documented in this encounter Visit Diagnoses Diagnosis Recurrent UTI Urinary tract infection, site not specified Other microscopic hematuria documented in this encounter Insurance Payer Benefit Plan / Subscriber ID Effective Dates Phone Address Type Group [facility] xxxxxxxxxxx 2019-Present Maicol Guarantor Name Account Type Relation to Date of Phone Billing Patient Address Beth Clemens Personal/Family 1995 [id number] [phone] [place], [place] (Work) [id number] documented as of this encounter
--- OUTSIDE RECORDS SUMMARY | 2019-11-24 11:05 | XMS REPORT | Summary of Care ---
:1995 Author Organization [facility] Address [address] [facility] [place] [place] [address] Care Team Providers Name Role Phone Nash Alonso Primary Care Provider Reason for Visit Reason Comments Urinary Tract Infection pt states that she went to [facility] urgent care last week due to UTI. still has bladder pain. would like std testing and test Encounter Details Date Type Department Care Team Description 11/12/2019 Office Visit [facility] [place], Valarie, Dysuria (Primary Dx) ; Practice PA-C Screening for STD (sexually transmitted disease); [address] [facility] [place] [address] [place] [address] [phone] Allergies Active Allergy Reactions Severity Noted Date Comments Amoxicillin GI Reaction 01/04/2017 Penicillins GI Reaction 01/04/2017 documented as of this encounter (statuses as of 11/12/2019) Medications Medication Sig Dispensed Refills Start Date End Date Status ibuprofen (MOTRIN) Take 200 mg 0 Active 200 MG Oral Tab by mouth EVERY SIX HOURS NEEDED for Pain. Desogestrel-Ethinyl Take 1 Tab 0 Discontinued Estradiol (ENSKYCE) by mouth 0 (Discontinued by 0.15-30 MG-MCG Oral DAILY. Patient Contact Tab Move Utility) cyclobenzaprine Take 1 Tab 20 Tab 0 07/25/2017 Discontinued (FLEXERIL) 10 MG by mouth 0 (Error) Oral Tab TWO TIMES DAILY NEEDED for muscle spasm. sulfamethoxazole-tri Take 1 Tab 10 Tab 0 04/03/2019 Discontinued methoprim (BACTRIM by mouth 0 (Error) DS, SEPTRA DS) TWICE 800-160 MG Oral Tab DAILY. fluconazole Take 1 Tab 1 Tab 0 04/03/2019 Discontinued (DIFLUCAN) 150 MG by mouth 0 (Error) Oral Tab DAILY. documented as of this encounter (statuses as of 11/12/2019) Active Problems Problem Noted Date Acne 07/30/2008 Recurring Sprains of Ankle 07/30/2008 Overweight (BMI 25.0-29.9) 07/30/2008 Overview: 08/08/2007, BMI: 26.55 Heart Murmur as Child 07/30/2008 documented as of this encounter (statuses as of 11/12/2019) Resolved Problems Problem Noted Date Resolved Date Well child check 08/08/2007 09/05/2011 documented as of this encounter (statuses as of 11/12/2019) Immunizations Name Administration Dates Next Due Adacel [...] of this encounter Last Filed Vital Signs Vital Sign Reading Time Taken Comments Blood Pressure 128/82 11/12/2019 9:28 AM EST Pulse 101 11/12/2019 9:28 AM EST Temperature 36.6 11/12/2019 9:28 AM EST C (97.8 F) Respiratory Rate - - Oxygen Saturation 98% 11/12/2019 9:28 AM EST Inhaled Oxygen Concentration - - Weight 94.8 kg (209 lb) 11/12/2019 9:28 AM EST Height 172.7 cm (5' 8") 11/12/2019 9:28 AM EST Body Mass Index 31.78 11/12/2019 9:28 AM EST documented in this encounter Patient Instructions Patient InstructionsDoValarie goff PA-C - 11/12/2019 9:20 AM EST1. Push water Rest Will send urine for culture, will call with results 2. Did vaginal culture for trichomonas/GC/abby, urine culture for Chlamydia and gonnorhea HIV blood test -- will call with all results 3. Ordered HCG qualitative -- will call with results documented in this encounter Progress Notes Valarie Klein PA-C - 11/12/2019 9:20 AM EST PATIENT: Corinna Olvera : 1995 DATE OF SERVICE: 11/12/2019 REFERRING PRACTITIONER: Self-Referred PRIMARY CARE PROVIDER: Nash Alonso CHIEF COMPLAINT: Chief Complaint Patient presents with Urinary Tract Infection pt states that she went to [facility] urgent care last week due to UTI. still has bladder pain. would like std testing and test Subjective HISTORY OF PRESENT ILLNESS: Corinna Olvera is a 24-y.o. female who presents for urinary frequency pain Took left over antibiotic from aug Urgent care visit, did not abx then, Started last sat twice daily x 5 days - gave relief Wants STD testing and test -- says she heard some "bad stuff" about boyfriend last night LMP: 10/23/19, light period, stopped control pills 2 months prior, was on continuous BCP Wants to get Took azo last night, some relief Denies fever, chills, nausea, vomiting, diarrhea, chest pains, SOB Past Medical History: Diagnosis Date Acne 07/30/2008 Heart Murmur as Child 07/30/2008 Overweight (BMI 25.0-29.9) 07/30/2008 08/08/2007, BMI: 26.55 Recurring Sprains of Ankle 07/30/2008 Past Surgical History: Procedure Laterality Date APPENDECTOMY Family History Problem Relation Age of Onset Asthma Unknown Current Outpatient Medications Medication Sig ibuprofen (MOTRIN) 200 MG Oral Tab Take 200 mg by mouth EVERY SIX HOURS NEEDED for Pain. No current facility-administered medications for this visit. [...] Not on file Tobacco Use Smoking status: Never Smoker Smokeless tobacco: Never Used Substance and Sexual Activity Alcohol use: No Drug use: No Sexual activity: Yes Partners: Male control/protection: Implant Lifestyle Physical activity Days per week: Not on file Minutes per session: Not on file Stress: Not on file Relationships Social connections Talks on phone: Not on file Gets together: Not on file Attends religion service: Not on file Active member of [...] Narrative Not on file REVIEW OF SYSTEMS: Skin: negative skin lesions Eyes: negative visual blurring Ears/Nose/Throat: negative rhinorrhea, sore throat, sinus pressure, post nasal drip Respiratory: negative cough Cardiovascular: negative chest pain Gastrointestinal: negative abdominal pain, constipation, diarrhea, nausea or vomiting Genitourinary: positive dysuria, irregular periods. Denies vaginal discharge, itching, sores Musculoskeletal: negative arthritis/joint pain Neurologic: negative numbness or tingling of feet or hands Psychiatric: negative anxiety Hematologic/Lymphatic/Immunologic: negative allergies Endocrine: negative diabetes or hot flashes/sweats Objective PHYSICAL EXAMINATION: VITALS: BP 128/82 (BP Location: Right arm, Patient Position: Sitting) | Pulse 101 | Temp 97.8 F (36.6 C) | Ht 5' 8" (1.727 m) | Wt 209 lb (94.8 kg ) | SpO2 98% | BMI 31.78 kg/m Body mass index is 31.78 kg/m. General appearance: alert, mild distress, cooperative, oriented times 3 Skin: Skin color, texture, turgor normal. No rashes or lesions. Head: Normocephalic. No masses, lesions, tenderness or abnormalities Eyes: conjunctivae/corneas clear. PERRL, EOM's intact. Neck: Neck supple, FROM. No cervical or supraclavicular adenopathy. Lungs: Good diaphragmatic excursion. Lungs clear. Chest symmetrical. Normal breath sounds. Heart: RRR. No murmurs, clicks or gallops. No peripheral edema. Abdomen: Abdomen soft. Mild tenderness over bladder. BS normal. No masses, organomegaly or hernia. HCG urine: negative . IMPRESSION: ICD-9-CM ICD-10-CM 1. Dysuria 788.1 R30.0 2. Screening for STD (sexually transmitted disease) V74.5 Z11.3 GC/CHLAMYDIA PCR ASSAY HIV 1,2 ANTIBODY SCREEN ABBY / JAYDEN / TRIC DNA PROBE HIV 1,2 ANTIBODY SCREEN GC/CHLAMYDIA PCR ASSAY ABBY / JAYDEN / TRIC DNA PROBE 3. Irregular menstrual bleeding 626.4 N92.6 HCG QUALITATIVE SERUM HCG QUALITATIVE URINE HCG, QUALITATIVE, URINE (AMB POCT) HCG QUALITATIVE URINE CANCELED: HCG QUALITATIVE SERUM CANCELED: HCG QUALITATIVE URINE Plan PLAN: 1. Push water Rest Will send urine for culture, will call with results 2. Did vaginal culture for trichomonas/GC/abby, urine culture for Chlamydia and gonnorhea HIV blood test -- will call with all results 3. Ordered HCG qualitative -- will call with results Call if not improving Author: Valarie Klein PA-C 11/12/2019 09:30 documented in this encounter Plan of Treatment Name Type Priority Associated Diagnoses Date/Time GC/CHLAMYDIA PCR ASSAY Lab Routine Screening for STD 11/12/2019 9:30 AM (sexually transmitted EST disease) HIV 1,2 ANTIBODY SCREEN Lab Routine Screening for STD 11/12/2019 10:05 AM (sexually transmitted EST disease) ABBY / JAYDEN / TRIC DNA Lab Routine Screening for STD 11/12/2019 9:35 AM PROBE (sexually transmitted EST disease) HCG QUALITATIVE SERUM Lab Routine Irregular menstrual 11/12/2019 10:05 AM bleeding EST HCG QUALITATIVE URINE Lab Routine Irregular menstrual 11/12/2019 9:30 AM bleeding EST Name Type Priority Associated Diagnoses Order Schedule GC/CHLAMYDIA PCR ASSAY Lab Routine Screening for STD 1 Occurrences starting (sexually transmitted 11/12/2019 until disease) 05/10/2020 HIV 1,2 ANTIBODY SCREEN Lab Routine Screening for STD Expected: 11/12/2019 (sexually transmitted (Approximate), Expires: disease) 11/12/2020 ABBY / JAYDEN / TRIC Lab Routine Screening for STD 1 Occurrences starting DNA PROBE (sexually transmitted 11/12/2019 until disease) 05/10/2020 HCG QUALITATIVE URINE Lab Routine Irregular menstrual Expected: 11/12/2019 bleeding (Approximate), Expires: 05/10/2020 Health Maintenance Due Date Last Done Comments CHLAMYDIA SCREENING 1995 PNEUMOCOCCAL 0-64 YRS (1 of 2002 1 - PPSV23) DTaP/Tdap/Td Vaccines (6 - 2007 03/18/2001, 07/19/1997, Tdap) 1995, Additional history exists DEPRESSION SCREENING 2008 PAP SMEAR 2017 INFLUENZA VACCINE (#1) 2019 08/31/2010 HPV IMMUNIZATION SERIES Completed 03/15/2008, 10/27/2007, 08/08/2007 [...] is an individualized treatment (depression) goal for Corinna Olvera: Displayed above is your goal for a depression screening (PHQ-9) score that would indicate good control of your depression. Keep a regular sleep schedule Lifestyle No Arabella Desai FNP Note: This is an individualized lifestyle goal for Corinna Olvera: Please maintain a regular sleep schedule. This may help with some symptoms of depression. Take all prescribed medications as Self-management No Arabella Desai FNP directed Note: This is an individualized self-management goal for Corinna Olvera: Please take all prescribed medications as directed. [...] encounter Procedures Procedure Name Priority Date/Time Associated Diagnosis Comments HCG, QUALITATIVE, Routine 11/12/2019 9:35 AM Irregular menstrual Results for this URINE (AMB POCT) EST bleeding procedure are in the results section. documented in this encounter Results HCG, QUALITATIVE, URINE (AMB POCT) (11/12/2019 9:35 AM EST) HCG QUAL URINE (POCT) Negative Negative [facility] PO[facility] Control Line Present Present [facility] PO[facility] Lot Number [id number] [facility] PO[facility] Expiration Date 07/27/21 [facility] PO[facility] Specimen Performing Organization Address [facility]/State[facility] Phone Number [facility] [address] [place] [address] documented in this encounter Visit Diagnoses Diagnosis Dysuria Screening for STD (sexually transmitted disease) Screening examination for venereal disease Irregular menstrual bleeding Irregular menstrual cycle documented in this encounter Insurance Payer Benefit Plan / Subscriber ID Effective Dates Phone Address Type Group [facility] xxxxxxxxxxx 2019-Present Maicol Guarantor Name Account Type Relation to Date of Phone Billing Patient Address Corinna Olvera Personal/Family 1995 [address] [phone] [place], [place] (Work) [id number] documented as of this encounter
--- NOTE | 2019-11-24 14:23 | UC ---
Allergic Reaction HPI - HPI Summary HPI Summary: 24-year-old woman comes in with a chief complaint of hives. Patient started Bactrim this morning for a UTI from her urologist at [facility]. She developed hives on her arms and on her chest. She also felt some tingling in her throat and mouth. She took by mouth Benadryl. Since she is taking the Benadryl the rash is gone away. 3 scope patient started with UTI type symptoms and she took Bactrim that she had left over from a UTI in May 2019. There is no improvement she went to her doctor's diagnosed with bacterial vaginosis and treated with Flagyl successfully. Because of recurrent urinary tract infections she saw the [facility] urologist to prescribed her Bactrim. She took the first dose is morning and then started having the allergic reaction. No prior history of allergic reaction. No difficulty breathing or swallowing at this time. - History of Current Complaint Chief Complaint: UCAllergicReaction Stated Complaint: HIVES Hx Last Menstrual Period: 11/21/19 Pain Intensity: 0 - Allergies/Home Medications Allergies/Adverse Reactions: Allergies Allergy/AdvReac Type Severity Reaction Status Date / Time amoxicillin Allergy Diarrhea Verified 11/24/19 12:14 latex Allergy Rash Verified 11/24/19 12:14 Penicillins Allergy Diarrhea Verified 11/24/19 12:14 Sulfa (Sulfonamide Allergy Hives Verified 11/24/19 12:14 Antibiotics) PMH/Surg Hx/FS Hx/Imm Hx Previously Healthy: Yes - recurrent urinary tract infections. Other History Of: Hepatitis C Negative For: HIV, Hepatitis B - Surgical History Surgical History: Yes Surgery Procedure, Year, and Place: APPY AGE 14 - Family History Known Family History: Positive: Cardiac Disease, Hypertension Negative: Diabetes, Renal Disease, Seizure Disorder - Social History Alcohol Use: Occasionally Substance Use Type: None Smoking Status (MU): Never Smoked Tobacco Have You Smoked in the Last Year: No Review of Systems All Other Systems Reviewed And Are Negative: Yes Constitutional: Positive: Other - SEE HPI Skin: Positive: Other - SEE HPI Eyes: Positive: Negative ENT: Positive: Negative Respiratory: Positive: Negative Cardiovascular: Positive: Negative Gastrointestinal: Positive: Negative Genitourinary: Positive: Other - SEE HPI Motor: Positive: Negative Neurovascular: Positive: Negative Musculoskeletal: Positive: Negative Neurological: Positive: Negative Psychological: Positive: Negative Is Patient Immunocompromised?: No Physical Exam Triage Information Reviewed: Yes Appearance: Well-Appearing, No Pain Distress, Well-Nourished Vital Signs: Initial Vital Signs Temp 98 F 11/24/19 12:11 Pulse 71 11/24/19 12:11 Resp 18 11/24/19 12:11 BP 124/83 11/24/19 12:11 Pulse Ox 100 11/24/19 12:11 Vital Signs Reviewed: Yes Eye Exam: Normal Eyes: Positive: Conjunctiva Clear ENT: Positive: Pharynx normal Neck: Positive: Supple Respiratory: Positive: Lungs clear, Normal breath sounds, No respiratory distress Cardiovascular: Positive: RRR Abdomen Description: Positive: Nontender. Negative: CVA Tenderness (R), CVA Tenderness (L) Musculoskeletal: Positive: Strength Intact, ROM Intact Neurological: Positive: Alert Psychological: Positive: Age Appropriate Behavior Skin Exam: Normal Allergic Reaction Course/Dx - Course Course Of Treatment: On my examination the hives are gone. Patient did take Benadryl. That the patient know that she should consider herself allergic to sulfa based medications. Ran a stop the Bactrim and start Macrobid. If any hives comes back she's going to start the Benadryl and also take prednisone. If anything gets worse either with urinary tract infection or allergic reaction she's get reevaluated again right away. - Differential Dx/Diagnosis Provider Diagnosis: UTI (urinary tract infection), Allergic reaction to sulfonamide Discharge ED - Sign-Out/Discharge Documenting (check all that apply): Patient Departure All imaging exams completed and their final reports reviewed: No Studies - Discharge Plan Condition: Stable Disposition: HOME Prescriptions: Nitrofurantoin Monohyd/M-Cryst [Macrobid 100 mg Capsule] 100 mg PO BID #14 cap predniSONE 20 mg TAB [Deltasone 20 MG TAB*] 40 mg PO DAILY #6 tab Patient Education Materials: Urinary Tract Infection in Women (ED), General Allergic Reaction (ED) Referrals: Nash Alonso MD [Primary Care Provider] - Additional Instructions: FOLLOW UP WITH YOUR DOCTOR. Consider yourself allergic to sulfa-based medications. Do not take anymore of the trimethoprim sulfamethoxazole antibiotic. Start the Macrobid 100 mg twice a day for 7 days for UTI. If you have any further hives go ahead and take 50 mg of Benadryl and also 40 mg of prednisone. GET REEVALUATED SOONER IF NOT IMPROVED OR WORSE; WORSENING ALLERGIC REACTION, YOU FEEL ILL, DIFFICULTY SWALLOWING OR BREATHING OR ANY QUESTIONS OR CONCERNS. - Billing Disposition and Condition Condition: STABLE Disposition: Home
[2019-11-24 15:02] VITALS: BP 130/80
--- NOTE | 2019-11-26 15:14 | UC ---
- Progress Note Progress Note: PROGRESS NOTE: UTI: ON MACROBID E. COLI PRELIMINARY; GREATER THAN 100K NO CHANGE IN TREATMENT. Darell Zambrano MD Course/Dx - Diagnoses Provider Diagnoses: UTI (urinary tract infection), Allergic reaction to sulfonamide Discharge ED - Sign-Out/Discharge Documenting (check all that apply): Post-Discharge Follow Up All imaging exams completed and their final reports reviewed: No Studies - Discharge Plan Condition: Stable Disposition: HOME Prescriptions: Nitrofurantoin Monohyd/M-Cryst [Macrobid 100 mg Capsule] 100 mg PO BID #14 cap predniSONE 20 mg TAB [Deltasone 20 MG TAB*] 40 mg PO DAILY #6 tab Patient Education Materials: Urinary Tract Infection in Women (ED), General Allergic Reaction (ED) Referrals: Nash Alonso MD [Primary Care Provider] - Additional Instructions: FOLLOW UP WITH YOUR DOCTOR. Consider yourself allergic to sulfa-based medications. Do not take anymore of the trimethoprim sulfamethoxazole antibiotic. Start the Macrobid 100 mg twice a day for 7 days for UTI. If you have any further hives go ahead and take 50 mg of Benadryl and also 40 mg of prednisone. GET REEVALUATED SOONER IF NOT IMPROVED OR WORSE; WORSENING ALLERGIC REACTION, YOU FEEL ILL, DIFFICULTY SWALLOWING OR BREATHING OR ANY QUESTIONS OR CONCERNS. - Billing Disposition and Condition Condition: STABLE Disposition: Home
== END 2019-11-24 15:04 | disposition home or self-care (01) ==
LOC: UCEAST 10:57
DX: N39.0 Urinary tract infection, site not specified (principal); L50.9 Urticaria, unspecified; T37.0X5A Adverse effect of sulfonamides, initial encounter; Y92.9 Unspecified place or not applicable; Z88.0 Allergy status to penicillin; Z91.040 Latex allergy status
CPT/HCPCS: 81003; 87077; 87086; 87186; 99212; G0463

== ENCOUNTER 2019-11-24 18:19 | Emergency (ER) | payer OTHER ==
[2019-11-24 18:26] VITALS: BP 145/96
[2019-11-24] MEDS ORDERED: diPHENhydraMINE PO* 25 MG PO ONE (18:54)
--- NOTE | 2019-11-24 18:55 | ED ---
Allergic Reaction/Systemic - HPI Summary HPI Summary: Patient complains of sudden onset hives earlier today after taking new antibiotics this morning. Symptoms resolved with Benadryl 50 mg. Patient then ate lunch at [employer] and rash returned on face. Patient took Benadryl 25 mg at 5 PM with hives currently resolving. Denies swelling to mouth or tongue, shortness of breath. Denies any other pain, injury or symptoms. Denies prior history of urticaria. Medical history is none. - History of Current Complaint Chief Complaint: EDAllergicReaction Time Seen by Provider: 11/24/19 18:51 Hx Obtained From: Patient Hx Last Menstrual Period: 11/21/19 Onset/Duration: Sudden Onset, Started hours ago Timing: Intermittent Severity Currently: None Pain Intensity: 0 Pain Scale Used: 0-10 Numeric Character: Hives Aggravating Factor(s): OTC Meds Alleviating Factor(s): OTC Meds Associated Signs And Symptoms: Positive: Rash - Allergies/Home Medications Allergies/Adverse Reactions: Allergies Allergy/AdvReac Type Severity Reaction Status Date / Time amoxicillin Allergy Diarrhea Verified 11/24/19 12:14 latex Allergy Rash Verified 11/24/19 12:14 Penicillins Allergy Diarrhea Verified 11/24/19 12:14 Sulfa (Sulfonamide Allergy Hives Verified 11/24/19 12:14 Antibiotics) PMH/Surg Hx/FS Hx/Imm Hx Endocrine/Hematology History: Denies: Hx Diabetes, Hx Thyroid Disease Cardiovascular History: Denies: Hx Congestive Heart Failure, Hx Deep Vein Thrombosis, Hx Hypertension , Hx Myocardial Infarction, Hx Pacemaker/ICD Respiratory History: Denies: Hx Asthma, Hx Chronic Obstructive Pulmonary Disease (COPD), Hx Lung Cancer, Hx Pneumonia, Hx Pulmonary Embolism GI History: Denies: Hx Gall Bladder Disease, Hx Gastrointestinal Bleed, Hx Ulcer, Hx Urosepsis History: Denies: Hx Kidney Stones, Hx Renal Disease Sensory History: Denies: Hx Hearing Aid Opthamlomology History: Denies: Hx Legally Blind EENT History: Denies: Hx Deafness Neurological History: Denies: Hx Dementia, Hx Migraine, Hx Seizures, Hx Transient Ischemic Attacks (TIA) Psychiatric History: Denies: Hx Anxiety, Hx Depression, Hx Panic Disorder, Hx Schizophrenia, Hx Bipolar Disorder - Surgical History Surgery Procedure, Year, and Place: APPY AGE 14 Infectious Disease History: No Infectious Disease History: Denies: Traveled Outside the [place] in Last 30 Days - Family History Known Family History: Positive: Cardiac Disease, Hypertension Negative: Diabetes, Renal Disease, Seizure Disorder - Social History Alcohol Use: Occasionally Substance Use Type: Reports: None Smoking Status (MU): Never Smoked Tobacco Have You Smoked in the Last Year: No Review of Systems Constitutional: Negative Eyes: Negative ENT: Negative Cardiovascular: Negative Respiratory: Negative Gastrointestinal: Negative Genitourinary: Negative Musculoskeletal: Negative Positive: Rash Neurological: Negative Psychological: Normal All Other Systems Reviewed And Are Negative: Yes Physical Exam - Summary Physical Exam Summary: Mild lacy patches of erythema on face. No other rash noted on chest abdomen or extremities. Normal ENT exam Triage Information Reviewed: Yes Vital Signs On Initial Exam: Initial Vitals Temp Pulse Resp BP Pulse Ox 97.0 F 85 18 145/96 99 11/24/19 18:20 11/24/19 18:20 11/24/19 18:20 11/24/19 18:20 11/24/19 18:20 Vital Signs Reviewed: Yes Appearance: Positive: Well-Appearing Head/Face: Positive: Normal Head/Face Inspection Eyes: Positive: Normal ENT: Positive: Normal ENT inspection Neck: Positive: Supple Respiratory/Lung Sounds: Positive: Clear to Auscultation Cardiovascular: Positive: Normal Abdomen Description: Positive: Nontender Musculoskeletal: Positive: Normal Neurological: Positive: Normal Psychiatric: Positive: Normal AVPU Assessment: Alert - Neil Coma Scale Best Eye Response: 4 - Spontaneous Best Motor Response: 6 - Obeys Commands Best Verbal Response: 5 - Oriented Coma Scale Total: 15 Procedures - Sedation Patient Received Moderate/Deep Sedation with Procedure: No Diagnostics - Vital Signs Vital Signs Temp Pulse Resp BP Pulse Ox 11/24/19 18:20 97.0 F 85 18 145/96 99 - Laboratory Lab Statement: Any lab studies that have been ordered have been reviewed, and results considered in the medical decision making process. Allergic Reaction Course/Dx - Course Course Of Treatment: Patient complains of sudden onset hives earlier today after taking new antibiotics this morning. Symptoms resolved with Benadryl 50 mg. Patient then ate lunch at [employer] and rash returned on face. Patient took Benadryl 25 mg at 5 PM with hives currently resolving. Denies swelling to mouth or tongue, shortness of breath. Denies any other pain, injury or symptoms. Denies prior history of urticaria. Medical history is none. Vital signs within normal limits. Rash resolved here in the ED. - Diagnoses Provider Diagnoses: Hives, UTI (urinary tract infection) Discharge ED - Sign-Out/Discharge Documenting (check all that apply): Patient Departure - Discharge Plan Condition: Stable Disposition: HOME Patient Education Materials: Urticaria (ED) Referrals: Nash Alonso MD [Primary Care Provider] - Additional Instructions: Continue taking Benadryl 50 mg every 6 hours if needed for ongoing hives. Take prednisone as prescribed by urgent care. Take Macrobid twice a day as prescribed by urgent care. Return to the ED for any new or worsening symptoms. - Billing Disposition and Condition Condition: STABLE Disposition: Home - Attestation Statements Provider Attestation: I was available for consultation for this patient. I did not evaluate the patient, or participate in any medical decision making or disposition decisions unless I am specifically named in the chart as having consulted on the patient. If I have consulted on the patient, please see my own ED note on the patient encounter. Blade Tavarez MD
[2019-11-24] MEDS ORDERED: Nitrofurantoin Macrocrystals* 100 MG CAP PO ONE (19:08)
== END 2019-11-24 19:13 | disposition home or self-care (01) ==
LOC: ED 18:19
DX: L50.0 Allergic urticaria (principal); T37.8X5A Adverse effect of other specified systemic anti-infectives and antiparasitics, initial encounter; Y92.9 Unspecified place or not applicable; N39.0 Urinary tract infection, site not specified; Z88.0 Allergy status to penicillin; Z88.2 Allergy status to sulfonamides; Z91.040 Latex allergy status
CPT/HCPCS: 99282; A9270-GY; J7512